=== PATIENT | female | born 1935 | race Caucasian/White ===

== ENCOUNTER → 2019-12-27 | Outpatient (CLI) | payer MEDICARE, SELFPAY ==
[2019-12-27 13:07] LABS: CREATININE 0.8 mg/dL (0.5-1.5)
== END | disposition home or self-care (01) ==
LOC: LAB 11:05
PROVIDERS: ATTEND Internal Medicine Cardiovascular Disease
DX: I10 Essential (primary) hypertension (principal)
CPT/HCPCS: 36415; 82565; 84520

== ENCOUNTER → 2020-01-10 | Outpatient (CLI) | payer OTHER | END | disposition home or self-care (01) | LOC: RAH 08:25 → EDUNIT# 09:00 | PROVIDERS: ATTEND Internal Medicine Cardiovascular Disease | DX: Z13.6 Encounter for screening for cardiovascular disorders (principal) | CPT/HCPCS: 75571 ==

== ENCOUNTER → 2020-08-04 | Outpatient (CLI) | payer MEDICARE ==
[~2020-08-04] MED LIST: IOHEXOL-350 50ML VIAL IV ONE
== END | disposition home or self-care (01) ==
LOC: RAH 07:38
PROVIDERS: ATTEND Internal Medicine Cardiovascular Disease
DX: I71.4 Abdominal aortic aneurysm, without rupture (principal); K57.30 Diverticulosis of large intestine without perforation or abscess without bleeding; Z90.49 Acquired absence of other specified parts of digestive tract
CPT/HCPCS: 74174; Q9967

== ENCOUNTER 2020-10-24 09:00 | Inpatient (IN) | payer MEDICARE ==
[~2020-10-24] VITALS: Ht 175.3 cm; Wt 82.6 kg
[2020-10-24 11:13] LABS: APPEARANCE,URINE Clear (CLEAR); BILIRUBIN,URINE Negative (NEGATIVE); COLOR,URINE Yellow (YELLOW); GLUCOSE, URINE (UA) Negative (NEGATIVE); KETONES,URINE Negative (NEGATIVE); LEUKOCYTE ESTERASE ,URINE Small (NEGATIVE); NITRATE,URINE Negative (NEGATIVE); OCCULT BLOOD,URINE Negative (NEGATIVE); PROTEIN,URINE Negative (NEGATIVE); UROBILINOGEN,URINE 0.2 mg/dL (0.2-1.0)
[2020-10-24 11:14] LABS: CREATININE 0.7 mg/dL (0.5-1.5); POTASSIUM 3.8 mmol/L (3.5-5.1)
[2020-10-24 11:16] LABS: BASOPHILS % (AUTO) 0.7 % (0.0-5.0); EOSINOPHILS % (AUTO) 0.9 % (0.0-8.0); HEMATOCRIT 41.4 % (36-48); MEAN CORPUSCULAR HEMOGLOBIN 29.9 pg (27.0-33.0); MEAN CORPUSCULAR HGB CONC 34.3 g/dL (32.0-36.0); MEAN CORPUSCULAR VOLUME 87.2 fL (79-99); PLATELET COUNT (AUTO) 226 K/uL (130-400); RED BLOOD CELL COUNT(AUTO) 4.75 MIL/uL (4.00-5.50); RED CELL DISTRIBUTION WIDTH 13.8 % (11.0-15.5); WHITE BLOOD COUNT (AUTO) 6.9 K/uL (4.8-10.8)
[2020-10-24 11:43] LABS: BACTERIA,URINE Few /HPF (None Seen); RBC,URINE 0-1 /HPF (0-1)
[2020-10-24 12:27] LABS: INR 1.02 (0.85-1.15); PROTHROMBIN TIME 11.1 SEC (9.6-11.6)
[2020-10-24 12:28] LABS: PARTIAL THROMBOPLASTIN TIME 28.5 SEC (26.3-35.5)
[2020-10-24 13:54] VITALS: BP 142/81
[2020-10-24] MEDS ORDERED: LEVO25CA4 PO (14:32)
[2020-10-24] MEDS ORDERED: ZOLP5TAB2 PO (14:32)
[2020-10-24] MEDS ORDERED: HYDR12.54 PO (14:32)
[2020-10-24] MEDS ORDERED: ASPI-1443 PO (14:32)
[2020-10-24] MEDS ORDERED: ATOR10 PO (14:32)
[2020-10-24] MEDS ORDERED: CHOL400T33 PO (14:32)
[2020-10-24] MEDS ORDERED: METO50TA18 PO (14:32)
[2020-10-24] MEDS ORDERED: VERA120C3 PO (14:32)
[2020-10-24] MEDS ORDERED: ALLO100T PO (14:32)
[2020-10-24] MEDS ORDERED: BUSP15TA3 PO (14:32)
[2020-10-27] VITALS (24 sets, daily range): BP systolic 120–152; BP diastolic 43–82
[2020-10-27] MEDS ORDERED: 0.9%NACL 1000ML 1,000 ML IV ONE (05:54)
[2020-10-27] MEDS: LEVOTHYROXINE 25 MCG TABLET PO SCH (06:30)
[2020-10-27] MEDS ORDERED: HEPARIN 10,000 UNIT/10ML (1,000 UNIT/ML) VIAL ONE ×2 (06:43→07:15)
[2020-10-27] MEDS ORDERED: LIDOCAINE HCL 400MG/20ML VIAL ONE (06:44)
[2020-10-27] MEDS ORDERED: IODIXANOL 320 MG/ML 100 ML VIAL ONE (06:44)
[2020-10-27] MEDS ORDERED: GLYCOPYRROLATE 1 MG/5 ML SYRINGE ONE (06:52)
[2020-10-27] MEDS ORDERED: SUCCINYLCHOLINE CHLORIDE 20 MG/ML 10 ML VIAL ONE (06:52)
[2020-10-27] MEDS ORDERED: LIDOCAINE PF 100MG/5ML (2%) SYRINGE 5ML ONE (06:52)
[2020-10-27] MEDS ORDERED: EPHEDRINE SULFATE 50 MG/ML AMPULE ONE (06:52)
[2020-10-27] MEDS ORDERED: PHENYLEPHRINE HCL 10 MG/ML 1ML VIAL IV ONE (06:52)
[2020-10-27] MEDS ORDERED: ROCURONIUM 10MG/1ML SYR 10 MG/ML ML ONE (06:53)
[2020-10-27] MEDS ORDERED: PROPOFOL 10 MG/ML 20ML VIAL IV ONE (06:53)
[2020-10-27] MEDS ORDERED: NEOSTIGMINE 5MG/5ML SYR IV ONE (06:53)
[2020-10-27] MEDS ORDERED: NITROGLYCERIN 50MG/D5W 250ML 0 BOT ONE (06:55)
[2020-10-27] MEDS ORDERED: CEFAZOLIN SODIUM 1 GM VIAL ONE (07:09)
[2020-10-27] MEDS ORDERED: FENTANYL CITRATE PF 50 MCG/1 ML 2ML VIAL ONE (07:44)
[2020-10-27] MEDS ORDERED: HYDRALAZINE 20MG/ML VIAL ONE (09:08)
[2020-10-27] MEDS ORDERED: PHARMACY COMMUNICATION MISC SCH (09:15)
[2020-10-27] MEDS ORDERED: MORPHINE 5 MG/ML VIAL (5MG OR GREATER DOSE) IV PRN (09:15)
[2020-10-27] MEDS: CHOLECALCIFEROL PO SCH (10:50)
[2020-10-27] MEDS: HYDROCHLOROTHIAZIDE 25 MG TABLET PO SCH (10:51)
[2020-10-27] MEDS: VERAPAMIL HCL 80 MG TABLET PO SCH (10:53)
[2020-10-27] MEDS ORDERED: NOREPINEPHRIN 4MG/NS 250ML 250 ML IV SCH (11:00)
[2020-10-27] MEDS ORDERED: NITROGLYCERIN 50MG/D5W 250ML 250 BOT IV SCH (11:00)
[2020-10-27] MEDS ORDERED: ACETAMINOPHEN 325 MG TAB PO PRN (11:15)
[2020-10-27] MEDS: BUSPIRONE HCL 5 MG TABLET PO SCH ×2 (11:21→20:26)
[2020-10-27] MEDS ORDERED: HYDROMORPHONE 0.5 MG SYG (0.5MG/0.5ML) IVP PRN (12:30)
[2020-10-27] MEDS: MORPHINE 4 MG SYG IV PRN ×2 (12:37→23:59)
[2020-10-27] MEDS: 0.9%NACL 1000ML 1,000 ML IV SCH (14:45)
[2020-10-27] MEDS: CEFAZOLIN SODIUM 1 GM VIAL IVP SCH ×2 (15:46→23:42)
[2020-10-27] MEDS: ZOLPIDEM TARTRATE 5 MG TAB PO SCH (20:26)
[2020-10-27] MEDS: ATORVASTATIN 10 MG TABLET PO SCH (20:26)
[2020-10-27] MEDS: ALLOPURINOL 100 MG TABLET PO SCH (20:27)
[2020-10-28] VITALS (16 sets, daily range): BP systolic 110–158; BP diastolic 46–75
[2020-10-28] MEDS: 0.9%NACL 1000ML 1,000 ML IV SCH (01:10)
[2020-10-28 04:16] LABS: HEMATOCRIT 36.3 % (36-48); MEAN CORPUSCULAR HEMOGLOBIN 29.7 pg (27.0-33.0); MEAN CORPUSCULAR HGB CONC 34.2 g/dL (32.0-36.0); MEAN CORPUSCULAR VOLUME 87.1 fL (79-99); RED BLOOD CELL COUNT(AUTO) 4.17 MIL/uL (4.00-5.50); WHITE BLOOD COUNT (AUTO) 10.9 K/uL (4.8-10.8)
[2020-10-28 04:30] LABS: CREATININE 0.7 mg/dL (0.5-1.5); POTASSIUM 3.5 mmol/L (3.5-5.1)
[2020-10-28] MEDS: LEVOTHYROXINE 25 MCG TABLET PO SCH ×2 (06:58→07:24)
[2020-10-28] MEDS: HYDROCHLOROTHIAZIDE 25 MG TABLET PO SCH (07:23)
[2020-10-28] MEDS: BUSPIRONE HCL 5 MG TABLET PO SCH ×2 (07:24→20:48)
[2020-10-28] MEDS: ALLOPURINOL 100 MG TABLET PO SCH ×2 (07:24→20:46)
[2020-10-28] MEDS ORDERED: ASPIRIN 81MG CHEW TAB ONE (07:26)
[2020-10-28] MEDS: VERAPAMIL HCL 80 MG TABLET PO SCH (07:29)
[2020-10-28] MEDS: ASPIRIN 81 MG EC TAB PO SCH (07:29)
[2020-10-28] MEDS: CHOLECALCIFEROL PO SCH (09:00)
[2020-10-28] MEDS: METOPROLOL TARTRATE 50 MG TAB PO SCH (10:22)
[2020-10-28] MEDS: ATORVASTATIN 10 MG TABLET PO SCH (20:46)
[2020-10-28] MEDS: ZOLPIDEM TARTRATE 5 MG TAB PO SCH (20:46)
[2020-10-29 00:15] VITALS: BP 132/75
[2020-10-29 04:53] VITALS: BP 133/69
[2020-10-29 08:00] VITALS: BP 139/78
[2020-10-29] MEDS: CHOLECALCIFEROL PO SCH (09:00)
[2020-10-29] MEDS: METOPROLOL TARTRATE 50 MG TAB PO SCH (09:24)
[2020-10-29] MEDS: BUSPIRONE HCL 5 MG TABLET PO SCH (09:24)
[2020-10-29] MEDS: VERAPAMIL HCL 80 MG TABLET PO SCH (09:25)
[2020-10-29] MEDS: HYDROCHLOROTHIAZIDE 25 MG TABLET PO SCH (09:25)
[2020-10-29] MEDS: ALLOPURINOL 100 MG TABLET PO SCH (09:25)
[2020-10-29] MEDS: ASPIRIN 81 MG EC TAB PO SCH (09:25)
== END 2020-10-29 14:40 | disposition home health service (06) | DRG 269 ==
LOC: EDSTATUS 10:00 → DAHIP 10-27 05:34 → 2CH 10-27 09:35 → 2DH 10-28 18:01 → 4CH 10-28 23:30
PROVIDERS: ADMIT Internal Medicine; ATTEND Internal Medicine
PROC: 04V03DZ Restriction of Abdominal Aorta with Intraluminal Device, Percutaneous Approach (ICD-10-PCS; principal; 2020-10-27)
PROC: B4101ZZ Fluoroscopy of Abdominal Aorta using Low Osmolar Contrast (ICD-10-PCS; 2020-10-27)
DX: I71.4 Abdominal aortic aneurysm, without rupture (principal); I10 Essential (primary) hypertension; E78.5 Hyperlipidemia, unspecified; E03.9 Hypothyroidism, unspecified; M10.9 Gout, unspecified; I35.8 Other nonrheumatic aortic valve disorders; I73.9 Peripheral vascular disease, unspecified; Z20.822 Contact with and (suspected) exposure to COVID-19; F41.9 Anxiety disorder, unspecified; Z79.899 Other long term (current) drug therapy; Z98.49 Cataract extraction status, unspecified eye; Z90.49 Acquired absence of other specified parts of digestive tract
CPT/HCPCS: 34705; 34713; 36415; 71045; 80048; 81001; 85025; 85027; 85347; 85610; 85730; 86850; 86900; 86901; 86923; 87426; 93005; 97039; A4344; A4606; C1725; C1760; C1769; C1887; C1894; G0378; J0330; J0360; J0690; J1644; J2001; J2270; J2370; J2704; J2710; J3010; J3490; J7030; Q9967; U0003

== ENCOUNTER → 2022-04-29 | Outpatient (CLI) | payer MEDICARE ==
[~2022-04-29] MED LIST changes: +ALLO100T PO; +ASPI-1443 PO; +ATOR10 PO; +BUSP15TA3 PO; +CHOL400T33 PO; +HYDR12.54 PO; -IOHEXOL-350 50ML VIAL IV ONE; +LEVO25CA4 PO; +METO50TA18 PO; +VERA120C3 PO; +ZOLP5TAB2 PO
== END | disposition home or self-care (01) ==
LOC: SHCH 07:48
PROVIDERS: ATTEND Internal Medicine Cardiovascular Disease
DX: I71.4 Abdominal aortic aneurysm, without rupture (principal); Z95.828 Presence of other vascular implants and grafts
CPT/HCPCS: 93978

== ENCOUNTER → 2022-07-22 | Outpatient (CLI) | payer MEDICARE ==
[~2022-07-22] MED LIST changes: +IOHEXOL 350 MG/ML 100ML INFUS..BTL IV ONE
== END | disposition home or self-care (01) ==
LOC: RAH 09:33
PROVIDERS: ATTEND Internal Medicine Cardiovascular Disease
DX: K57.30 Diverticulosis of large intestine without perforation or abscess without bleeding (principal); I71.40 Abdominal aortic aneurysm, without rupture, unspecified; M47.814 Spondylosis without myelopathy or radiculopathy, thoracic region; K59.00 Constipation, unspecified; Z90.49 Acquired absence of other specified parts of digestive tract
CPT/HCPCS: 74174; Q9967

== ENCOUNTER → 2023-02-02 | Outpatient (CLI) | payer MEDICARE ==
[~2023-02-02] MED LIST changes: -IOHEXOL 350 MG/ML 100ML INFUS..BTL IV ONE
== END | disposition home or self-care (01) ==
LOC: SHCH 07:51
PROVIDERS: ATTEND Internal Medicine Cardiovascular Disease
DX: I71.40 Abdominal aortic aneurysm, without rupture, unspecified (principal); Z95.828 Presence of other vascular implants and grafts
CPT/HCPCS: 93978